=== PATIENT | female | born 1975 | race Caucasian/White ===

== ENCOUNTER → 2019-05-18 | Outpatient (CLI) | payer OTHER ==
--- NOTE | 2019-05-18 16:23 | RAD ---
EXAM: Left forearm, 2 views; left hand, 2 views. HISTORY: Pain. COMPARISON: None. FINDINGS: 2 views of the lentiform left hand are obtained. There is no fracture, dislocation or subluxation. The alignment and joint spaces are unremarkable. There is no suspicious osseous lesion. There is no periosteal reaction. No elbow effusion is seen. IMPRESSION: No acute osseous finding. Electronically signed by: Andria Claros MD (05/18/2019 4:20 PM) [id number]
== END | disposition home or self-care (01) ==
LOC: PMG 15:24
PROVIDERS: ATTEND Registered Nurse
DX: M79.602 Pain in left arm (principal); M79.642 Pain in left hand
CPT/HCPCS: 73090; 73120

== ENCOUNTER → 2020-11-24 | Outpatient (CLI) | payer OTHER ==
--- NOTE | 2020-11-24 11:24 | RAD ---
EXAM: Pelvic sonogram. HISTORY: Pain. TECHNIQUE: Transabdominal sonographic imaging of the pelvis was performed. COMPARISON: None. FINDINGS: The uterus measures 10.8 x 7.3 x 6.4 cm. There are multiple heterogeneous solid-appearing l esions within the uterine fundus, the largest of which measures 3.0 cm. These are likely due to fibro ids. The endometrial stripe measures 8.4 mm in thickness. The ovaries are normal in size and demonstr ate normal blood flow. There is no pelvic free fluid. IMPRESSION: 1. Mildly enlarged uterus containing suspected multiple fibroids, largest which measures 3.0 cm. 2. Normal endometrial stripe thickness for the premenopausal status of the patient. 3. Unremarkable ovaries. Electronically signed by: Andria Claros MD (11/24/2020 11:22 AM) [facility]
== END ==
LOC: US 10:33
PROVIDERS: ATTEND Family Medicine Sports Medicine
DX: N85.2 Hypertrophy of uterus (principal); R10.2 Pelvic and perineal pain
CPT/HCPCS: 76856

== ENCOUNTER 2021-05-26 02:23 | Emergency (ER) | payer OTHER ==
[~2021-05-26] VITALS: Ht 165.1 cm; Wt 93.2 kg
--- NOTE | 2021-05-26 02:32 | PHYS DOC ---
Past History Past Medical History: GERD, IBS General Adult HPI: HPI: ".. I having bloody diarrhea.. ".." Thats the lst time.. that has ever happen.." Patient is a 45 year old female who presents with above hx and complaints bloody diarrhea. Patient denies any history of antibiotic use. No history of C. difficile. No history of coagulopathy. Does have a history of hemorrhoids and IBS. Patient did have a polyp removed on her last colonoscopy approximately 5 years ago. Patient denies any bad food. Patient denies any contacts with animals. Patient denies any contact with people may have C. difficile. No recent travel. No history immunosuppression. Review of Systems: Review of Systems: Constitutional: Denies fever or chills Eyes: Denies change in visual acuity HENT: Denies nasal congestion or sore throat Respiratory: Denies cough or shortness of breath Cardiovascular: Denies chest pain or edema GI: Denies abdominal pain, nausea, vomiting,. Complains of bloody stools or diarrhea : Denies dysuria Musculoskeletal: Denies back pain or joint pain Integument: Denies rash Neurologic: Denies headache, focal weakness or sensory changes Endocrine: Denies polyuria or polydipsia Lymphatic: Denies swollen glands Psychiatric: Denies depression or anxiety Family History: Family History: Noncontributory to presentation Current Medications: Current Meds: See nursing for home meds Allergies: Allergies: Allergic amoxicillin is for clavulanic acid Physical Exam: PE: Constitutional: Moderate acute distress, non-toxic appearance. [] HENT: Normocephalic, atraumatic, bilateral external ears normal, oropharynx moist, no oral exudates, nose normal. [] Eyes: PERRLA, EOMI, conjunctiva normal, no discharge. [] Neck: Normal range of motion, no tenderness, supple, no stridor. [] Cardiovascular:Heart rate regular rhythm, no murmur [] Lungs & Thorax: Bilateral breath sounds clear to auscultation [] Abdomen: Bowel sounds hyperactive, soft, no tenderness, no masses, no pulsatile masses. Obese. Rectal exam no gross blood appreciated. It has small hemorrhoid tags. Patient later did have a stool with some bright red specks of blood. Skin: Warm, dry, no erythema, no rash. [] Back: No tenderness, no CVA tenderness. [] Extremities: No tenderness, no cyanosis, no clubbing, ROM intact, no edema. [] Neurologic: Alert and oriented X 3, normal motor function, normal sensory function, no focal deficits noted. [] Psychologic: Affect anxious, judgement normal, mood normal. [] EKG: EKG: [] Radiology/Procedures: Radiology/Procedures: [][address] [address] IMAGING REPORT Signed PATIENT: ZIGGY JOHNSON MACCOUNT: [id number] : 09/11/1982 LOCATION: ER AGE: 38 SEX: F EXAM STATUS: REG ER ORD. PHYSICIAN: CITLALLI HOOD MD REASON: cp, elev. d-dimer PROCEDURE: CT ANGIOGRAPHY CHEST CTA CHEST History: Chest pain, elevated d-dimer Comparison: Chest radiograph 05/26/2021 Technique: CTA of the pulmonary arteries with intravenous contrast. 3-D postprocessing was performed. Findings: Pulmonary arteries: There is inadequate enhancement of the main pulmonary artery, measuring approximately 87 Hounsfield units. No large central pulmonary embolism. Evaluation of the lobar pulmonary arteries and distal is nondiagnostic. Aorta and great vessels: No aneurysm or dissection of the aortic arch or thorac ic aorta. Thyroid: No significant abnormalities. Mediastinum and jonatan: No mediastinal masses or adenopathy is seen. Esophagus: The visualized esophagus is normal. Heart: The heart is normal in size. There is no pericardial effusion. Airways, Lungs, Pleura: The airways are patent. No airspace consolidation, pleural effusion or pneumothorax. Upper abdomen: Limited evaluation of the upper abdomen is unremarkable. Osseous structures and soft tissues: Within normal limits for age. Impression: 1. No large central pulmonary embolism. Evaluation for pulmonary embolism at the lobar and distal levels is nondiagnostic due to inadequate pulmonary arterial contrast enhancement. 2. No airspace disease. ------ Exposure: One or more of the following individualized dose reduction techniques were utilized for this examination: 1. Automated exposure control 2. Adjustment of the mA and/or kV according to patient size 3. Use of iterative reconstruction technique. Electronically signed by: Gerardo Teran MD (05/26/2021 4:03 AM) [facility] DICTATED AND SIGNED BY: GERARDO TERAN MD DATE: 05/26/21 0356 CC: CITLALLI HOOD MD; ELIZABETH VARGHESE MD ~ Heart Score: C/O Chest Pain: N/A Risk Factors: Risk Factors: DM, Current or recent (<one month) smoker, HTN, HLP, family history of CAD, obesity. Risk Scores: Score 0 - 3: 2.5% MACE over next 6 weeks - Discharge Home Score 4 - 6: 20.3% MACE over next 6 weeks - Admit for Clinical Observation Score 7 - 10: 72.7% MACE over next 6 weeks - Early Invasive Strategies Course & Med Decision Making: Course & Med Decision Making Pertinent Labs and Imaging studies reviewed. (See chart for details) Continue to monitor bloody stools. Be on a clear fluid diet only for the next 24 to 48 hours. No solids. No milk products. Schedule outpatient follow-up colonoscopy and possible biopsies. Impression: 1. Lower GI outlet bleeding-colitis, AV malformation, diverticular, hemorrhoids [] Dragon Disclaimer: Dragon Disclaimer: This electronic medical record was generated, in whole or in part, using a voice recognition dictation system. Departure Departure: Referrals: GERMÁN MCCANN DO, MPH (PCP) Scripts Oxycodone HCl/Acetaminophen (Percocet 5-325 mg Tablet) 1 Each Tablet 1 TAB PO PRN QID PRN for PAIN MDD 4 Tablet(s) for 5 Days, #30 TAB 0 Refills Prov: CITLALLI HOOD MD 05/26/21 Dragon Disclaimer This chart was dictated in whole or in part using Voice Recognition software in a busy, high-work load, and often noisy Emergency Department environment. It may contain unintended and wholly unrecognized errors or omissions. CITLALLI HOOD MD May 26, 2021 02:32
[2021-05-26] MEDS ORDERED: CETI10CA PO (02:56)
[2021-05-26] MEDS ORDERED: MULT1CAP15 PO (02:56)
[2021-05-26] MEDS ORDERED: IV RINGERS SOLUTION,LACTATED 1,000 ML IV SCH (03:15)
[2021-05-26] MEDS ORDERED: FAMOTIDINE 20 MG/2 ML VIAL IVP ONE (03:15)
[2021-05-26] MEDS ORDERED: ONDANSETRON PF 4 MG/2 ML VIAL. IVP ONE (03:15)
[2021-05-26 04:00] VITALS: BP 108/62
[2021-05-26 04:20] LABS: BASO % 0 % (0-3); EOS # 0.3 x10^3/uL (0.0-0.7); EOS % 3 % (0-3); HEMATOCRIT 39.9 % (36.0-47.0); HEMOGLOBIN 13.5 g/dL (12.0-15.5); LYMPH # 2.5 x10^3/uL (1.0-4.8); LYMPH % 28 % (24-48); MEAN CORPUSCULAR HEMOGLOBIN 31 pg (25-35); MEAN CORPUSCULAR HGB CONC 34 g/dL (31-37); MEAN CORPUSCULAR VOLUME 93 fL (79-100); MONO # 0.7 x10^3/uL (0.0-1.1); MONO % 8 % (0-9); NEUT # 5.3 x10^3uL (1.8-7.7); NEUT % 60 % (31-73); PLATELET COUNT 284 x10^3/uL (140-400); RED BLOOD COUNT 4.32 x10^6/uL (3.50-5.40); RED CELL DISTRIBUTION WIDTH 13.3 % (11.5-14.5); WHITE BLOOD COUNT 8.8 x10^3/uL (4.0-11.0)
--- NOTE | 2021-05-26 04:23 | RAD ---
XR ABDOMEN COMP ACUTE History: Diarrhea Comparison: None. Technique: Frontal chest with upright and supine radiographs of the abdomen and pelvis. Findings: Chest: Clear lungs. Normal cardiomediastinal silhouette. Bowel gas pattern: Nonobstructive. No differential air-fluid levels or dilated small bowel loops. Mil d stool in the ascending colon. Free air: None. Abnormal calcifications: None. Bones: No acute findings. Other: None. Impression: 1. No acute cardiac pulmonary findings. 2. No acute abdominopelvic findings. Electronically signed by: Gerardo Yost MD (05/26/2021 4:21 AM) [facility]
[2021-05-26 04:33] LABS: FECAL OB PT POSITIVE (NEG)
[2021-05-26] MEDS ORDERED: OXYC-325 PO (05:03)
[2021-05-26 05:11] LABS: ANION GAP 10 (6-14); BLOOD UREA NITROGEN 10 mg/dL (7-20); CALCIUM 8.7 mg/dL (8.5-10.1); CARBON DIOXIDE 25 mmol/L (21-32); CHLORIDE 103 mmol/L (98-107); CREATININE 0.9 mg/dL (0.6-1.0); GFR 67.4; GLUCOSE 108 mg/dL (70-99); POTASSIUM 3.8 mmol/L (3.5-5.1); SODIUM 138 mmol/L (136-145)
[2021-05-26] MEDS ORDERED: oxyCODONE/APAP 5/325 1 TAB TABLET PO ONE (05:15)
[2021-05-26 05:17] LABS: ALBUMIN 3.7 g/dL (3.4-5.0); ALK PHOS 48 U/L (46-116); ALT (SGPT) 27 U/L (14-59); AST (SGOT) 15 U/L (15-37); LIPASE 207 U/L (73-393); TOTAL BILIRUBIN 0.1 mg/dL (0.2-1.0)
[2021-05-26 05:19] LABS: DIRECT BILIRUBIN < 0.1 mg/dL (0.0-0.2)
== END 2021-05-26 05:19 | disposition home or self-care (01) ==
LOC: ER 02:23
DX: K92.2 Gastrointestinal hemorrhage, unspecified (principal); K52.9 Noninfective gastroenteritis and colitis, unspecified; K64.9 Unspecified hemorrhoids; Q27.30 Arteriovenous malformation, site unspecified; K57.90 Diverticulosis of intestine, part unspecified, without perforation or abscess without bleeding; K21.9 Gastro-esophageal reflux disease without esophagitis; Z88.1 Allergy status to other antibiotic agents
CPT/HCPCS: 74022; 80048; 80076; 82274; 82550; 83690; 85025; 85610; 85730; 87493; 96374; 96375; 99284; J2405; J3490; J7120